=== PATIENT | male | born 1970 | race Caucasian/White ===

== ENCOUNTER 2021-03-17 09:49 | Emergency (ER) | payer OTHER ==
[~2021-03-17] VITALS: Ht 170.2 cm; Wt 108.1 kg
--- NOTE | 2021-03-17 09:57 | NUR ---
CONTACT LENS ASSISTANT: EKG COMPLETED IN TRIAGE.
--- NOTE | 2021-03-17 10:04 | NUR ---
patient arrives to er with edema ble edema 3+ tight, and ascites to belly. he reports liver failure and has been tapped roughly 25 times. he has a hepatic shunt. he is needing transplant. on monitor, rails up. vss. aox4.
[2021-03-17] MEDS ORDERED: LACT10SO28 PO (10:12)
[2021-03-17] MEDS ORDERED: FURO80TA3 PO (10:12)
[2021-03-17] MEDS ORDERED: SPIR50TA4 PO (10:12)
--- NOTE | 2021-03-17 10:12 | NUR ---
patient unsure of meds, placed medications that he knows in chart but he is unsure of others
[2021-03-17] MEDS ORDERED: INSU100V37 SC (10:14)
[2021-03-17] MEDS ORDERED: INSU100V8 SQ (10:14)
[2021-03-17] MEDS ORDERED: LIDOCAINE 1%, 10ML ONE (10:31)
--- NOTE | 2021-03-17 10:41 | NUR ---
left for paracentesis
[2021-03-17 10:59] LABS: BASOPHILS % (AUTO) 0 % (0-1); EOSINOPHILS % (AUTO) 2 % (1-7); LYMPHOCYTES % (AUTO) 27 % (22-44); MEAN CORPUSCULAR HEMOGLOBIN 33.6 pg (27.5-34.5); MEAN CORPUSCULAR HGB CONC 34.3 g/dL (33.2-36.2); MEAN PLATELET VOLUME 7.9 fL (7.4-10.4); MONOCYTES % (AUTO) 11 % (2-9); NEUTROPHILS % (AUTO) 60 % (42-75); PLATELET COUNT 86 x10^3/uL (130-400); RED BLOOD COUNT 2.76 x10^6/uL (4.38-5.82); RED CELL DISTRIBUTION WIDTH 17.1 % (9.4-14.8)
[2021-03-17 11:10] LABS: ALANINE AMINOTRANSFERASE 24 U/L (12-78); ALBUMIN 2.3 g/dL (3.4-5.0); ANION GAP 7 mmol/L (5-15); CALCIUM 7.5 mg/dL (8.5-10.1); CHLORIDE 101 mmol/L (98-107); CREATININE 0.86 mg/dL (0.7-1.3)
[2021-03-17 11:12] LABS: ALKALINE PHOSPHATASE 157 U/L (45-117); BILIRUBIN,TOTAL 2.5 mg/dL (0.2-1.0); TOTAL PROTEIN 5.4 g/dL (6.4-8.2)
--- NOTE | 2021-03-17 11:47 | NUR ---
pt back from paracentesis, andreas 8.1 liters off
--- NOTE | 2021-03-17 12:03 | NUR ---
patient voided in urinal 400 yellow urine out
[2021-03-17 12:14] VITALS: BP 122/88
--- NOTE | 2021-03-17 12:31 | NUR ---
helped patient out in wheelchair, to car son driving
== END 2021-03-17 12:33 | disposition home or self-care (01) ==
LOC: ED 12:25
DX: K70.31 Alcoholic cirrhosis of liver with ascites (principal); E11.65 Type 2 diabetes mellitus with hyperglycemia; E88.09 Other disorders of plasma-protein metabolism, not elsewhere classified; L29.9 Pruritus, unspecified; R94.31 Abnormal electrocardiogram [ECG] [EKG]
CPT/HCPCS: 36415; 49083; 80053; 85025; 93005; 99285; J3490

== ENCOUNTER 2021-03-23 07:46 | Emergency (ER) | payer OTHER ==
[~2021-03-23] VITALS: Ht 170.2 cm; Wt 107.0 kg
[~2021-03-23 07:46] MED LIST: FURO80TA3 PO; INSU100V37 SC; INSU100V8 SQ; LACT10SO28 PO; SPIR50TA4 PO
--- NOTE | 2021-03-23 08:40 | NUR ---
PT WALKED BACK TO HIS ROOM AT THIS TIME
--- NOTE | 2021-03-23 09:40 | NUR ---
PT NOT WANTING TO WEAR HOSPTIAL GOWN, STATED IT'S HARD FOR HIM TO REMOVE AND PUT ON CLOTHING. PT ON VITALS MONITORS. EXPLAINED CONSENT FOR TO PT. PT SIGNED FORM FOR IR PROCEDURE. CONSENT PLACED ON CHART.
[2021-03-23 10:30] VITALS: BP 147/84
--- NOTE | 2021-03-23 10:40 | NUR ---
PT BECOMING UPSET THAT HE IS STILL WAITING FOR PROCEDURE TO BE DONE. PT INFORMED THAT IR WAS CALLED AND INFORMED THAT PT SIGNED CONSENT AND IS READY FOR PROCEDURE. CALLED IR AGAIN, WITH NO ANSWER. WILL TRY LATER TO FIND OUT WHERE PT IS ON IR SCHEDULE
--- NOTE | 2021-03-23 10:50 | NUR ---
PT WALKED OUT OF ROOM.
--- NOTE | 2021-03-23 10:56 | NUR ---
IR HERE TO GUEST REQUEST RUNNER PT FOR PROCEDURE
== END 2021-03-23 10:58 | disposition left against medical advice (07) ==
LOC: ED 08:08
DX: K70.31 Alcoholic cirrhosis of liver with ascites (principal); I10 Essential (primary) hypertension; E11.9 Type 2 diabetes mellitus without complications
CPT/HCPCS: 99281